=== PATIENT | female | born 1965 | race Caucasian/White ===

== ENCOUNTER 2018-08-06 07:59 | Observation (INO) | payer MEDICAID ==
[2018-08-03 11:23] LABS: BASOPHIL % 0.5 % (0-2); PLATELET COUNT 179 x10^3mcL (130-400); RED CELL DISTRIBUTION WIDTH 11.9 % (11.5-14.5)
[2018-08-03 11:38] LABS: ALBUMIN 3.6 g/dL (3.4-5.0); ALKALINE PHOSPHATASE 232 U/L (46-116); ALT/SGPT 16 U/L (14-59); AST/SGOT 24 U/L (15-37); BILIRUBIN TOTAL 0.42 mg/dL (0.20-1.00); CALCIUM 8.8 mg/dL (8.5-10.1); CARBON DIOXIDE 29.2 mmol/L (21-32); CHLORIDE SERUM 99 mmol/L (98-107); CREATININE SERUM 0.6 mg/dL (0.6-1.0); GFR1 > 60 mL/min; GLUCOSE SERUM 294 mg/dL (74-106); POTASSIUM SERUM 3.6 mmol/L (3.5-5.1); SODIUM SERUM 136 mmol/L (136-145); TOTAL PROTEIN, SERUM 7.9 g/dL (6.4-8.2)
[~2018-08-06] VITALS: Ht 152.4 cm; Wt 61.7 kg
[2018-08-06 08:29] VITALS: BP 128/69
[2018-08-06 13:35] VITALS: BP 114/62
[2018-08-06 17:06] VITALS: BP 92/57
[2018-08-06 20:41] VITALS: BP 99/54
[2018-08-07 06:09] VITALS: BP 104/64
[2018-08-07 06:33] LABS: BASOPHIL % 0.9 % (0-2); PLATELET COUNT 138 x10^3mcL (130-400)
[2018-08-07 06:37] LABS: CALCIUM 8.5 mg/dL (8.5-10.1); CHLORIDE SERUM 105 mmol/L (98-107); CREATININE SERUM 0.5 mg/dL (0.6-1.0); GFR1 > 60 mL/min; GLUCOSE SERUM 143 mg/dL (74-106); MAGNESIUM 1.8 mg/dL (1.8-2.4); POTASSIUM SERUM 4.2 mmol/L (3.5-5.1); SODIUM SERUM 139 mmol/L (136-145)
[2018-08-07 06:48] LABS: RED CELL DISTRIBUTION WIDTH 11.1 % (11.5-14.5)
[2018-08-07 09:53] VITALS: BP 94/54
[2018-08-07 16:23] VITALS: BP 94/54
== END 2018-08-07 17:30 | disposition home or self-care (01) | DRG 363 ==
LOC: DS 07:59 → OR 10:00 → MU 13:15
PROVIDERS: Internal Medicine; ADMIT Surgery
PROC: 0HBU0ZZ Excision of Left Breast, Open Approach (ICD-10-PCS; principal; 2018-08-06 10:00)
DX: C50.912 Malignant neoplasm of unspecified site of left female breast (principal); E11.65 Type 2 diabetes mellitus with hyperglycemia; Z17.0 Estrogen receptor positive status [ER+]
CPT/HCPCS: 82962; G0378; J0690; J1170; J1815; J2270; J2405; J2704; J3010; J3490; J7030

== ENCOUNTER 2019-03-12 10:31 | Observation (INO) | payer MEDICAID ==
[2019-03-07 10:55] LABS: BASOPHIL % 0.5 % (0-2); PLATELET COUNT 223 x10^3mcL (130-400); RED CELL DISTRIBUTION WIDTH 14.1 % (11.5-14.5)
[2019-03-07 11:19] LABS: ALBUMIN 4.1 g/dL (3.4-5.0); ALKALINE PHOSPHATASE 156 U/L (46-116); ALT/SGPT 25 U/L (14-59); AST/SGOT 32 U/L (15-37); BILIRUBIN TOTAL 0.53 mg/dL (0.20-1.00); CALCIUM 8.7 mg/dL (8.5-10.1); CARBON DIOXIDE 30.1 mmol/L (21-32); CHLORIDE SERUM 103 mmol/L (98-107); CREATININE SERUM 0.6 mg/dL (0.6-1.0); GFR1 > 60 mL/min; GLUCOSE SERUM 110 mg/dL (74-106); POTASSIUM SERUM 3.5 mmol/L (3.5-5.1); SODIUM SERUM 142 mmol/L (136-145)
[2019-03-07 11:22] LABS: TOTAL PROTEIN, SERUM 8.5 g/dL (6.4-8.2)
[~2019-03-12] VITALS: Ht 152.4 cm; Wt 65.5 kg
[2019-03-12 10:40] VITALS: BP 149/88
[2019-03-12 17:03] VITALS: BP 137/82
--- NOTE | 2019-03-12 17:07 | NUR ---
RECEIVED PT FROM OR VIA NATY. ORIENTED PT TO ROOM AND SURROUNDINGS. IV NOTED TO RH PATENT AND INTACT. INSTRUCTED PT ON THE USE OF CALL LIGHT FOR ASSISTANCE. ENDORSED PT TO PRIMARY NURSE NUHA
--- NOTE | 2019-03-12 18:13 | NUR ---
PT TOLERATED 100% OF CLEAR LIQ DIET/ NO N/V NOTED. IV TO THE RHAND INTACT AND PATENT/ NO REDNESS OR SWELLING NOTED. DAUGHTER AT BEDSIDE. WILL CONTINUE TO MONITOR.
--- NOTE | 2019-03-12 18:48 | NUR ---
NO ACUTE RESP DISTRESS OR SOB NOTED. DENIES ANY CHEST DISCOMFORT AT THIS TIME. CHELY DRAINS 1 AND 2 PATENT AND INTACT. IV TO THE INTACT AND PATENT/ WILL ENDORSE TO INCOMING RN.
--- NOTE | 2019-03-12 18:50 | NUR ---
TOTAL OUTPUT FOR DRAIN 1= 30ML AND DRAIN 2=20ML= DARK RED DRAINAGE NOTED. WILL ENDORSE TO RN.
[2019-03-12 19:45] VITALS: BP 128/74
--- NOTE | 2019-03-12 19:45 | NUR ---
PATIENT RECEIVED IN BED AWAKE,ALERT AND ORIENTED, S/P WIDE LOCAL EXCISION OF LEFT POSTMASTECTOMYCHES WALL, DRESSING CDI,ABDOMINAL BINDER IN USE,X2 CHELY TO CHEST WALL INTACT DRAINING SEROUS SANGUINOUS FLUID, SUCTION BULB COMPRESSED, PATIENT CLAIMED POST SURGICAL PAIN IS BEARBABLE THIS TIME AT 3/10, INFORMED ABOUT PAIN MANAGEMENT. HEPLOCK TO RHAND PATENT AND INTACT FLUSHED WELL. AMBULATED WITHOUT DIFF. VOIDED SINCE ARRIVAL TO THE FLOOR FROM OR. SAFETY PRECAUTIONS MAINTAINED. PATIENT INFORMED ABOUT POC THIS SHIFT. WILL CONTINUE TO MONITOR.
--- NOTE | 2019-03-12 21:57 | NUR ---
PATIENT HAD COMPLAINED OF POST SURGICAL PAIN, CALLED DR Gordy OSBORNE AND INFORMED ABOUT COMPLAINT. MD WITH ORDER RECEIVED AND NOTED.
--- NOTE | 2019-03-12 22:18 | NUR ---
patient mdeicated with ms for complaint of left chest surgical incisional pain which she rated at 7/10, made comfortable in bed. will check effectiveness.
--- NOTE | 2019-03-12 23:18 | NUR ---
PATIENT CHECKED THIS TIME, PATIENT STATED PAIN IS SLOWLY SUBSIDING RATED AT 3/10, DRESSING REMAINED CDI. WILL CONTINUE TO MONITOR.
--- NOTE | 2019-03-13 05:35 | NUR ---
PT C/O OF LEFT CHEST SURGICAL PAIN RATED AT 5/10. MEDICATED. WILL CHECK EFFECTIVENESS.
[2019-03-13 05:43] VITALS: BP 111/62
[2019-03-13 06:41] LABS: BASOPHIL % 0.3 % (0-2); PLATELET COUNT 237 x10^3mcL (130-400); RED CELL DISTRIBUTION WIDTH 13.9 % (11.5-14.5)
--- NOTE | 2019-03-13 06:42 | NUR ---
PATIENT HAD A RESTFUL NIGHT STATED, WAS MEDICATED WITH MS AND PERCOCET FOR COMPLAINT OF LEFT CHEST/BREAST SURGICAL INCISIONAL PAIN, DESIRED RELIEF OBTAINED. IV SITE NO SIGN OF INFILTRATION. CHELY#1 DRAINED 70 ML SS FLUID, CHELY#2 30 CC SS FLUID, DRESSING REMAINED CDI WITH ABDOMINAL BINDER IN PLACE, USED SCD DURING THE SHIFT BILAT. AMBULATED WUTH STEADY GAIT. VOIDED WITHOUT DIFF. SAFETY/FALL PRECAUTIONS MAINTAINED. WILL ENDORSE CONTINUITY OF CARE TO INCOMING NURSE.
--- NOTE | 2019-03-13 06:54 | NUR ---
DR Gordy OSBORNE CALLED AND INQUIRE ABOUT CHELY OUTPUT TOTAL FOR EACH BULB, MD UPDATED, ALSO INQUIRE ABOUT FUNCTIONALITY OF LUE, INFORMED MD THAT PATIENT COMPLAINT OF PAIN BUT ABLE TO MOVE ARM AND DENIED N/T SENSATION.
--- NOTE | 2019-03-13 07:31 | NUR ---
BEDSIDE HANDS OFF AND INTRODUCTION PERFORMED WITH INCOMING NURSE ROSHNI DE LUNA.
--- NOTE | 2019-03-13 08:00 | NUR ---
RECEIVED PATIENT AWAKE AND WITH CHELY TO DRAINAGE AND THE BOTH SITES WITH APPROXIMATELY 15-20 CC IN THE BULB. PATIENT HAS BEEN WITH DRESSING TO THE CHEST SITE AND BINDER IN PLACE INDIATED. PATIENT HAS A ROLLED UP [place] TO THE LEFT UNDERARM FOR PRESSURE. MILD EDEMA TO THE LEFT UPPER EXTREMTY NOTED. PATIENT HAS VITALS AT THIS TIME AT 98.8, 89, 18, 111/52, 99%. PATIENT HAS BRP AND HAS RECEIVED PERCOCET AT 5:30AM AND NO COMPLAINTS OF PAIN AT THIS TIME. LABS ARE AT 10.4/30, GLUCOSE AT 183. 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 PATIENT HAS HAD A REVISION OF THE MASECTOMY DUE TO POSSIBLE CANCER TO THFE SITE WAND NEEDED REMOVAL. PATIENT HAS HAD CHEMO IN THE PAST AND NOW POSSIBLE RADIATION HAS BEEN PLANNED. DR NANCY VENTURA DID THE DEBRIDEMENT AND EXCISION FOR THE LEFT AXILLARY RADIAL COMPLETE LYMPH NODE DISECTION. WILL CONTINUE TO MONITOR INDICATED.
--- NOTE | 2019-03-13 09:30 | NUR ---
PATIENT TOLERATED HER MEAL AND IS ON THE CELL PHONE AND AT THIS TIME SHE DENIES PAIN.
[2019-03-13 10:19] VITALS: BP 110/63
--- NOTE | 2019-03-13 13:02 | NUR ---
REQUESTED PAIN MEDICATION AND WANTS PILL FORM. GAVE PERCOCET FOR PAIN AND WILL MONITOR FOR EFFECTIVENESS. PATIENT HAS HAD 50CC OF OUPUT FROM NUMBER ONE CHELY AND 25 CC FROM NUMBER TWO CHELY. PATIENT HAS SEROUS SANQUINOUS OUTPUT AT THIS TIME. DRESSING INTACT AND BINDER REMAINS IN PLACE.
--- NOTE | 2019-03-13 13:23 | NUR ---
Discount pharmacy card and [facility] given to patient by Emily Rm.
--- NOTE | 2019-03-13 16:25 | NUR ---
SPOKE WITH DR OSBORNE RE: PATIENT'S QUESTION ABOUT GOING HOME TODAY. PER DR OSBORNE PATIENT CAN BE DC HOME TODAY WITH CHELY X2 AND TO EDUCATED PATIENT ABOUT CARE OF CHELY'S INCLUDING HOW TO EMPTY AND RECORD THE DRAINAGE AMOUNT. PER DR OSBORNE PATIENT TO F/U WITH HIM ADVISED. ATTENDING NURSE ROSHNI MADE AWARE.
[2019-03-13 16:42] VITALS: BP 110/63
--- NOTE | 2019-03-13 16:51 | NUR ---
DR OSBORNE CALLED AND ADVISED THE DOCTOR OF OUTPUT OF THE CHELY DRAINS. PATIENT HAS ABOUT LESS THAN 5 CC IN THE ONE AND APPROXIMATELY 20 TO THE OTHER NUMBER TWO. PATIENT HAS HAD ONE PAIN PILL AND HAS TOLERATED DIET AND OOB WELL. DRESSING REMAINS INTACT. PATIENT CAN FOLLOW UP WITH DR OSBORNE IN HIS OFFICE TOMORROW. IF ANY ISSUES OF FEVER, PAIN DRAINAGE THAT IS MILKY OR FOUL THEN CALL THE SURGEON OR COME TO THE EMERGENCY ROOM FOR TREATMENT. PATIENT IS ANXIOUS TO GO HOME. DR TIRADO DISCHARGE HOME TODAY. CHARGE NURSE BRANT CALLED HIM TO CONFIRM ORDERS AND SO SHE CAN ENTER APPROPRIATELY. WILL REMOVE IV AND SHOW PATIENT CARE OF THE CHELY AND DRESSING SITES.
[2019-03-13 17:18] VITALS: BP 124/64
== END 2019-03-13 18:15 | disposition home or self-care (01) | DRG 364 ==
LOC: OR 10:31 → MU 16:10 → OR 03-13 12:00 → MU 03-13 18:15
PROVIDERS: ADMIT Surgery
PROC: 07T60ZZ Resection of Left Axillary Lymphatic, Open Approach (ICD-10-PCS; principal; 2019-03-12 12:30)
PROC: 0HBUXZZ (ICD-10-PCS; principal; 2019-03-12 12:30)
DX: C50.912 Malignant neoplasm of unspecified site of left female breast (principal); C77.3 Secondary and unspecified malignant neoplasm of axilla and upper limb lymph nodes; E11.9 Type 2 diabetes mellitus without complications; Z17.0 Estrogen receptor positive status [ER+]; Z90.12 Acquired absence of left breast and nipple; Z92.21 Personal history of antineoplastic chemotherapy; Z68.28 Body mass index [BMI] 28.0-28.9, adult
CPT/HCPCS: 82962; 88344; 88361; G0378; J0690; J1170; J2270; J2405; J2704; J3010; J3490; J7042; J7120